=== PATIENT | female | born 2005 | race Caucasian/White ===

== ENCOUNTER 2024-03-20 20:35 | Emergency (ER) | payer OTHER, SELFPAY ==
[2024-03-20 20:40] VITALS: BP 120/71; PULSE 76; RESP 18; TEMP 37.2; O2SAT 100; BMI 28.0
--- NOTE | 2024-03-21 00:15 | ED_ITS ---
HPI - Female Genitourinary General Chief complaint: Urogenital-Female Stated complaint: severe yeast infection, swelling Time Seen by Provider: 03/21/24 00:01 Source: patient Mode of arrival: Ambulatory History of Present Illness HPI Narrative: Patient is a 19-year-old female without significant past medical history presenting today with vaginal pain. She reports that she frequently gets yeast infections she is used [id number] Monistat 1 before without any sort of problem. She used it on March 17 or . Thought that itching was getting better however today she had significant pain in her vagina. She felt like left-sided relieve it was little bit more swollen. He has never had a reaction like this before. Not concerned for STDs has been with her . Currently has an IUD. No abdominal pain or other symptoms. Related Data Previous Rx's Medication Instructions Recorded fluconazole 200 mg tablet 200 mg PO DAILY PRN vaginal 03/21/24 (Diflucan) itching #2 tabs prednisone 20 mg tablet 40 mg (2 x 20 mg) PO DAILY #10 tabs 03/21/24 Allergies Allergy/AdvReac Type Severity Reaction Status Date / Time No Known Drug Allergies Allergy Verified 03/20/24 20:40 Patient History tobacco type: vaping Exam Initial Vital Signs Initial Vital Signs: Vital Signs Temperature 99 F 03/20/24 20:40 Pulse Rate 76 03/20/24 20:40 Respiratory Rate 18 03/20/24 20:40 Blood Pressure 120/71 03/20/24 20:40 Pulse Oximetry 100 03/20/24 20:40 Oxygen Delivery Method Room Air 03/20/24 20:40 GENERAL: Well-appearing, well-nourished and in no acute distress. CARDIOVASCULAR: peripheral pulses in tact, cap refill <2 sec RESPIRATORY: No respiratory distress, speaks in full sentences without difficulty ABDOMEN: Soft, nontender, no guarding or rebound PELVIC: External genitalia is normal, she does some external erythema in the peritoneal area but it is very all limited not extending into the rectum no significant spreading on feel legs very limited, no vaginal bleeding, white vaginal discharge no significant thickness, no odor, cervical os is closed, IUD string found no adnexal tenderness EXTREMITIES: Normal range of motion, no clubbing or edema. Neurovascularly intact NEUROLOGICAL: Cranial nerves II through XII grossly intact. Normal gait and speech. SKIN: Warm, dry, no petechiae, no rashes or lesions. Course Orders Ordered: ED Orders 03/21/24 00:13 Chlamydia/Gonoc/Myco Genital Stat Genital Culture Stat Wet Prep Tric BV Yanna Stat Vital Signs Vital signs: Vital Signs - 8 hr 03/21/24 00:22 Pulse Rate 59 L Blood Pressure 119/61 Pulse Oximetry 100 Oxygen Delivery Method Room Air MDM - Female Genitourinary Lab Data Labs: Point of Care Testing Test Results Negative Urine Dip Bedside Urine Glucose Negative Bedside Urine Bilirubin - Negative Bedside Urine Ketone - Negative Urine Specific [place] 1.010 Bedside Urine Occult Blood - Negative Bedside Urine pH 6.0 Bedside Urine Protein - Negative Bedside Urine Urobilinogen - Negative Bedside Urine Nitrite - Negative Bedside Urine Leukocytes - Negative Esterase MDM Narrative Medical decision making narrative: Patient 19-year-old female presenting today with vaginal pain. She is Monistat 1 previously without any sort of issue. On exam she some mild irritation and erythema. No obvious lesions exam is otherwise normal. Cultures and wet mount are taken. I suspect might be sort of a contact dermatitis. We will give her prednisone and a dose of fluconazole. No real concern for PID cultures have been taken Urinalysis does not show any evidence of UTI Wet mount does not show any yeast Trichomonas or clue cells. No need for Flagyl. She has no need for imaging. Abdomen is overall soft very low suspicion for any sort of like ovarian torsion or abdominal pathology Discharge Plan Departure Patient Disposition: Home Clinical Impression: Contact dermatitis Instructions: DI for Contact Dermatitis Activity Restrictions/Additional Instructions: *You have been diagnosed with possible allergic reaction *What to do: At this time unclear but I do think this maybe type of allergic reaction. I recommend that you do not put anything in the vagina until symptoms completely resolve. *Continue to take medications as directed Prednisone 40 mg once a day for 5 days Fluconazole 200 mg x 1 (for yeast infection) *Follow up with your primary care provider in 2-3 days or call [phone] *Return to ER if you should have increasing pain redness fever discharge or any new, worsening or concerning symptoms Prescriptions: New prednisone 20 mg tablet 40 mg PO DAILY Qty: 10 0RF fluconazole [Diflucan] 200 mg tablet 200 mg PO DAILY PRN (Reason: vaginal itching) Qty: 2 0RF Stand Alone Forms: Patient Portal/API/Survey
[2024-03-21 00:22] VITALS: BP 119/61; PULSE 59; O2SAT 100
[2024-03-26 20:07] LABS: Chlamydia trachomatis Negative (Negative); Mycoplasma genitalium Positive (Negative); Neisseria gonorrhoeae Negative (Negative)
== END 2024-03-21 00:30 | disposition home or self-care (01) ==
PROVIDERS: Emergency Provider Emergency Medicine
DX: L25.9 Unspecified contact dermatitis, unspecified cause (principal)
CPT/HCPCS: 81003; 81025; 87070; 87077; 87147; 87205; 87210; 87491; 87563; 87591; 99282